=== PATIENT | male | born 1985 | race Caucasian/White ===

== ENCOUNTER → 2025-06-11 13:18 | Outpatient (REF) | payer OTHER, SELFPAY ==
--- NOTE | 2025-06-11 13:18 | S_PTH ---
PATIENT: Steffen Belcher LOC: [facility] U#:[id number] AGE/SX: 39/M ROOM: RE06/11/[address]: Rose Sadler MD : 1985 BED: DIS: SPEC #: [id number] RECD: 06/12/25 07:43 STATUS: LITA REJustina #: [id number] LISA: 06/11/25 13:[address]: Rose Sadler DEPT: [facility] Surgical RECD BY: Jose Mondragon ENTERED: 06/12/25 07:43 SP TYPE: Surgical OTHR DR: Juan Ramon Plasencia MD Tissues: A - Cyst Procedures: Hematoxylin and Eosin Stain Gross and Microscopic Level 4
== END ==
LOC: ANHLAB 13:18
PROVIDERS: PCP Family Medicine; Visit Provider Plastic Surgery
DX: L72.3 Sebaceous cyst (principal); L08.9 Local infection of the skin and subcutaneous tissue, unspecified
CPT/HCPCS: 88305